=== PATIENT | male | born 1985 | race Caucasian/White ===

== ENCOUNTER 2017-10-08 08:08 | Emergency (ER) | payer BC ==
[~2017-10-08] VITALS: Ht 195.6 cm; Wt 107.0 kg
[2017-10-08 08:14] VITALS: Ht 195.6 cm; Wt 107.0 kg
[2017-10-08 10:08] LABS: BASOPHIL % 0.6 % (0-2); PLATELET COUNT 156 x10^3mcL (130-400); RED CELL DISTRIBUTION WIDTH 12.4 % (11.5-14.5)
[2017-10-08 10:17] LABS: CARBON DIOXIDE 30.6 mmol/L (21-32); CHLORIDE SERUM 103 mmol/L (98-107); CREATININE SERUM 0.9 mg/dL (0.7-1.3); GFR1 > 60 mL/min; GLUCOSE SERUM 92 mg/dL (74-106); POTASSIUM SERUM 4.7 mmol/L (3.5-5.1); SODIUM SERUM 139 mmol/L (136-145)
[2017-10-08 10:22] LABS: ALBUMIN 4.2 g/dL (3.4-5.0); ALKALINE PHOSPHATASE 66 U/L (46-116); ALT/SGPT 55 U/L (16-63); AST/SGOT 29 U/L (15-37); BILIRUBIN TOTAL 0.9 mg/dL (0.20-1.00)
[2017-10-08 10:43] LABS: AMPHETAMINE QUAL UR NONE DETECTED (See below)
[2017-10-08 13:05] VITALS: BP 157/80
== END 2017-10-08 13:05 | disposition home or self-care (01) ==
LOC: ED 08:08
PROVIDERS: Emergency Medicine
DX: R07.89 Other chest pain (principal); R06.02 Shortness of breath
CPT/HCPCS: 36415